=== PATIENT | male | born 1965 | race Caucasian/White ===

== ENCOUNTER → 2017-02-16 | Day surgery (SDC) | payer OTHER ==
[~2017-02-16] MED LIST: LACTATED RINGER'S 1000 ML INJ 1,000 ML ONE; PROPOFOL 500 MG/50 ML BTL IV ONE
--- NOTE | 2017-02-16 12:50 | GIPROC ---
[facility] [address] [place], [address] COLONOSCOPY PROCEDURE REPORT EXAM DATE: 02/16/2017 PATIENT NAME: Javier Hopper MR #: [id number] BIRTHDATE: 1965 ENDOSCOPIST: Montse Galvan MD ORDER #: [id number] ASSISTANT DIRECTOR OF PUBLIC WORKS: Barby Vinson RN STATUS: outpatient INDICATIONS: The patient is a 51 yr old male here for a colonoscopy due to unexplained diarrhea PROCEDURE PERFORMED: Colonoscopy with biopsy Colonoscopy with ablation MEDICATIONS: None and Per Anesthesia. PREP QUALITY: good ESTIMATED BLOOD LOSS: None CONSENT: The patient understands the risks and benefits of the procedure and understands that these risks include, but are not limited to: sedation, allergic reaction, infection, perforation and/or bleeding. Alternative means of evaluation and treatment include, among others: physical exam, x-rays, and/or surgical intervention. The patient elects to proceed with this endoscopic procedure. medical equipment was checked for proper function. Hand hygiene and appropriate measures for infection prevention was taken. After the risks, benefits and alternatives of the procedure were thoroughly explained, Informed consent was verified, confirmed and timeout was successfully executed by the treatment team. A digital exam revealed no abnormalities of the rectum The EC-[id number] ([id number]) endoscope was introduced through the anus and advanced to the cecum, which was identified by both the appendix and ileocecal valve. The instrument was then slowly withdrawn as the colon was fully examined. COLON FINDINGS: Small polyp in the ascending colon, removed by ablation with heat. Random Bx for diarrhea from ascending colon and sigmoid. The colon mucosa was otherwise normal. Retroflexed views revealed no abnormalities The scope was then completely withdrawn from the patient and the procedure terminated. ADVERSE EVENTS: There were no complications. IMPRESSIONS: 1. Small polyp in the ascending colon, removed by ablation with heat 2. Random Bx for diarrhea from ascending colon and sigmoid 3. The colon mucosa was otherwise normal 4. Retroflexed views revealed no abnormalities 5. Revealed no abnormalities of the rectum RECOMMENDATIONS: 1. Await biopsy results. Biopsy results will not be ready for 7-10 days. If you don't hear from us in two weeks, call our office for results. 2. Yearly hemoccult 3. High fiber diet RECALL: Return 5 years Colonoscopy Montse Galvan MD eSigned: Montse Galvan MD 02/16/2017 12:49 PM cc: Chato Evangelista M.D.
--- NOTE | 2017-02-16 12:53 | GIPROC ---
[facility] [address] [place], [address] EGD PROCEDURE REPORT EXAM DATE: 02/16/2017 PATIENT NAME: Javier Hopper MR #: [id number] BIRTHDATE: 1965 ATTENDING: Montse Galvan MD ORDER #: [id number] MOVEMAN: Barby Vinson RN STATUS: outpatient INDICATIONS: The patient is a 51 yr old male here for an EGD due to unexplained diarrhea, weight gain, and dyspepsia PROCEDURE PERFORMED: EGD w/ biopsy MEDICATIONS: None and Per Anesthesia. TOPICAL ANESTHETIC: none CONSENT: The patient understands the risks and benefits of the procedure and understands that these risks include, but are not limited to: sedation, allergic reaction, infection, perforation and/or bleeding. Alternative means of evaluation and treatment include, among others: physical exam, x-rays, and/or surgical intervention. The patient elects to proceed with this endoscopic procedure. medical equipment was checked for proper function. Hand hygiene and appropriate measures for infection prevention was taken. After the risks, benefits and alternatives of the procedure were thoroughly explained, Informed consent was verified, confirmed and timeout was successfully executed by the treatment team. The patient was anesthetized with topical anesthesia and the EC-[id number] ([id number]) endoscope was introduced through the mouth and advanced to the second portion of the duodenum. Retroflexed views revealed small Hiatal Hernia The gastroscope was then slowly withdrawn and removed. Sever gastritis Bx from antrum. The endoscopy was otherwise normal. ADVERSE EVENTS: There were no complications. IMPRESSIONS: 1. Sever gastritis Bx from antrum 2. Normal endoscopy otherwise 3. Retroflexed views revealed small Hiatal Hernia RECOMMENDATIONS: 1. Await biopsy results. Biopsy results will not be ready for 7-10 days. If you don't hear from us in two weeks, call our office for biopsy results. 2. Anti-reflux regimen 3. Avoid NSAIDS 4. Protonix 40mg Q AM 5. RTC in 3 WKs PATIENT CONDITION: stable DISPOSITION: Home REPEAT EXAM: Return as needed for EGD Montse Galvan MD eSigned: Montse Galvan MD 02/16/2017 12:53 PM cc: Chato Evangelista M.D.
== END | disposition home or self-care (01) ==
LOC: ESDC 10:39
PROVIDERS: ATTEND Hospitalist
DX: R19.7 Diarrhea, unspecified (principal); D12.2 Benign neoplasm of ascending colon; R10.13 Epigastric pain; K29.70 Gastritis, unspecified, without bleeding; K44.9 Diaphragmatic hernia without obstruction or gangrene
CPT/HCPCS: 00740; 00810; 43239; 45380; 45388; 88305; J3010; J7120